=== PATIENT | female | born 1970 | race African-American/Black ===

== ENCOUNTER 2019-01-30 07:30 | Inpatient (IN) | payer OTHER ==
[2019-01-30 08:32] VITALS: BMI 28.2
[2019-02-03] MEDS ORDERED: BUPIVACAINE HCL/PF 0.5% (5MG/ML) 10 ML VIAL ONE (13:53)
[2019-02-03] MEDS ORDERED: MIDAZOLAM HCL 2 MG/2 ML SINGLE DOSE VIAL ONE ×3 (14:01→14:23)
--- NOTE | 2019-02-03 14:22 | HP ---
Admitting History and Physical - Admission Chief Complaint: Endometrial stroma neoplasm History of Present Illness: 48 yo Para 2, diagnosed with endometrial stroma neoplasm, is pre op for abdominal hysterectomy. History Source: Patient Limitations to Obtaining History: No Limitations - Past Medical History ...LMP: 12/31/18 ...: No ...Para: 2 - Past Surgical History Past Surgical History: Yes: None - Smoking History Smoking history: Never smoked Have you smoked in the past 12 months: No - Alcohol/Substance Use Hx Alcohol Use: Yes (occas) History of Substance Use: reports: None - Social History History of Recent Travel: No Home Medications - Allergies Allergies/Adverse Reactions: Allergies Allergy/AdvReac Type Severity Reaction Status Date / Time No Known Drug Allergies Allergy Verified 02/03/19 13:23 - Home Medications Home Medications: Ambulatory Orders Ferrous Sulfate 325 mg PO DAILY 01/30/19 Family Disease History - Family Disease History Family History: Unremarkable Review of Systems - Review of Systems Constitutional: reports: No Symptoms Eyes: reports: No Symptoms HENT: reports: No Symptoms Neck: reports: No Symptoms Cardiovascular: reports: No Symptoms Respiratory: reports: No Symptoms Gastrointestinal: reports: No Symptoms Genitourinary: reports: No Symptoms Breasts: reports: No Symptoms Reported Musculoskeletal: reports: No Symptoms Integumentary: reports: No Symptoms Neurological: reports: No Symptoms Endocrine: reports: No Symptoms Hematology/Lymphatic: reports: No Symptoms Psychiatric: reports: No Symptoms Pain Intensity: 0 Physical Examination Vital Signs: Vital Signs Temperature 98.8 F 02/03/19 13:19 Pulse Rate 95 H 02/03/19 13:19 Respiratory Rate 20 02/03/19 13:19 Blood Pressure 134/74 02/03/19 13:19 O2 Sat by Pulse Oximetry (%) 99 02/03/19 13:18 Constitutional: Yes: Well Nourished Eyes: Yes: Conjunctiva Clear HENT: Yes: Atraumatic Neck: Yes: Supple Cardiovascular: Yes: Regular Rate and Rhythm Respiratory: Yes: Regular Gastrointestinal: Yes: Normal Bowel Sounds ...Rectal Exam: Yes: WNL Renal/: Yes: WNL Breast(s): Yes: WNL Musculoskeletal: Yes: WNL Extremities: Yes: WNL Neurological: Yes: Alert, Oriented ...Motor Strength: WNL Psychiatric: Yes: Alert, Oriented Problem List - Problems (1) Endometrial stromal neoplasm Code(s): D39.0 - NEOPLASM OF UNCERTAIN BEHAVIOR OF UTERUS Assessment/Plan Endometrial stroma neoplasm Pre op for SRINI Consent signed Anesthesia to see patient
[2019-02-03] MEDS ORDERED: PROPOFOL 20 ML ONE (14:23)
[2019-02-03] MEDS ORDERED: fentaNYL CITRATE 250 MCG/5 ML VIAL ONE (14:23)
[2019-02-03] MEDS ORDERED: LIDOCAINE HCL/PF 2% SDV 5ML VIAL ONE (14:27)
[2019-02-03] MEDS ORDERED: DEXAMETHASONE SOD PHOSPHATE 4 MG/1 ML VIAL ONE (14:27)
[2019-02-03] MEDS ORDERED: ROCURONIUM BROMIDE 50 MG/5 ML VIAL ONE (14:31)
[2019-02-03] MEDS ORDERED: ceFAZolin SODIUM 1 GM VIAL IVPB ONE (15:00)
[2019-02-03] MEDS ORDERED: ceFAZolin SODIUM 1 GM VIAL ONE (15:03)
[2019-02-03] MEDS ORDERED: HYDROmorphone HCl 2 MG/ML VIAL ONE (15:29)
[2019-02-03] MEDS ORDERED: ONDANSETRON 4 MG/2 ML VIAL IVPUSH PRN (16:03)
[2019-02-03] MEDS ORDERED: DOCUSATE SODIUM 100 MG CAPSULE (FP) PO PRN (16:04)
[2019-02-03] MEDS ORDERED: oxyCODONE HCL 5 MG TABLET PO PRN (16:04)
[2019-02-03] MEDS ORDERED: NALOXONE HCL 0.4 MG/ML VIAL IVPUSH PRN (16:04)
[2019-02-03] MEDS ORDERED: morphine SULFATE 4 MG/ML VIAL IVPUSH PRN (16:05)
[2019-02-03] MEDS ORDERED: LACTATED RINGERS SOLUTION 1,000 ML IV SCH (16:15)
[2019-02-03] MEDS ORDERED: NEOSTIGMINE METHYLSULFATE 0.5 MG/ML - 10 ML MDV ONE (16:19)
[2019-02-03] MEDS ORDERED: GLYCOPYRROLATE 0.2 MG/1 ML VIAL ONE (16:19)
[2019-02-03] MEDS ORDERED: BENZOIN TINCTURE SWABSTICK TP ONE (16:20)
--- NOTE | 2019-02-03 16:28 | OP ---
Operative Note - Note: Operative Date: 02/03/19 Pre-Operative Diagnosis: Endometrial stomal neoplasm Operation: Total abdominal hysterectomy / Bilateral salpingectomy Findings: Enlarged uterus c/w 16 weeks size Post-Operative Diagnosis: Same as Pre-op Surgeon: Yokasta Hung Dynamometer Repairer: Vivek Raymond Anesthesia: General Specimens Removed: Uterus / Tubes / Cervix Estimated Blood Loss (mls): 750
[2019-02-03] MEDS: ACETAMINOPHEN 500 MG TABLET (FP) PO SCH (17:00)
[2019-02-03] MEDS ORDERED: ACETAMINOPHEN INJECTION 100 ML IVPB ONE (17:32)
[2019-02-03 17:43] LABS: HEMATOCRIT 26.9 % (32.4-45.2); HEMOGLOBIN 8.4 GM/dL (10.7-15.3); MCH 22.3 pg (25.7-33.7); MEAN CELL VOLUME 71.8 fl (80-96); MEAN PLT VOLUME 8.8 fl (7.5-11.1); PLATELET COUNT 466 K/MM3 (134-434); RBC 3.75 M/mm3 (3.60-5.2); RDW 37.4 % (11.6-15.6); WHITE BLOOD COUNT 13.6 K/mm3 (4.0-10.0)
[2019-02-03] MEDS: DEXTROSE 5%-LACTATED RINGERS 1,000 ML IV SCH (17:53)
[2019-02-03] MEDS: LABETALOL HCL 5 MG/1 ML (100MG/20 ML VIAL) IVPUSH ONE ×2 (18:25→19:10)
[2019-02-03] MEDS ORDERED: ACETAMINOPHEN 1000 MG/100 ML VIAL (NON FORMULARY) IVPB ONE (18:27)
[2019-02-03] MEDS: CEFAZOLIN 1 GM/D5W 1 GM/50 ML BAG IVPB SCH (23:38)
[2019-02-04] MEDS: ACETAMINOPHEN 500 MG TABLET (FP) PO SCH ×6 (00:05→17:28)
[2019-02-04] MEDS ORDERED: ceFAZolin SODIUM 1 GM VIAL ONE (06:21)
[2019-02-04] MEDS: CEFAZOLIN 1 GM/D5W 1 GM/50 ML BAG IVPB SCH ×3 (06:29→07:22)
[2019-02-04 07:10] LABS: HEMATOCRIT 25.3 % (32.4-45.2); HEMOGLOBIN 8.4 GM/dL (10.7-15.3); MCH 23.6 pg (25.7-33.7); MCHC 33.1 g/dl (32.0-36.0); MEAN CELL VOLUME 71.2 fl (80-96); MEAN PLT VOLUME 8.5 fl (7.5-11.1); PLATELET COUNT 470 K/MM3 (134-434); RBC 3.56 M/mm3 (3.60-5.2); RDW 37.2 % (11.6-15.6)
[2019-02-04] MEDS: LABETALOL HCL 5 MG/1 ML (100MG/20 ML VIAL) IVPUSH ONE (07:23)
[2019-02-04] MEDS: MORPHINE SULFATE 2 MG/ML VIAL IVPUSH PRN ×2 (07:50→11:20)
[2019-02-04 08:25] LABS: CREATININE 0.8 mg/dL (0.55-1.3); POTASSIUM 4.4 mmol/L (3.5-5.1)
--- NOTE | 2019-02-04 08:33 | PN ---
Progress Note (short form) - Note Progress Note: 48 yo Para 2 with endometrial stromal neoplasm, is status post SRINI. She's lying in bed. No complaints. PE : Chest : CTA, no rales ABD : Dressing dry and intact. 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
--- NOTE | 2019-02-04 09:37 | PN ---
Progress Note, Physician Chief Complaint: s/p total abdominal hysterectomy under general anesthesia History of Present Illness: post op day one, TAP block for post op pain - Current Medication List Current Medications: Active Medications Acetaminophen (Tylenol -) 1,000 mg PO Q6H [facility] Last Admin: 02/04/19 07:20 Dose: Not Given Docusate Sodium (Colace -) 100 mg PO BID PRN PRN Reason: CONSTIPATION Fentanyl (Sublimaze Injection -) 50 mcg IVPUSH [id number] PRN PRN Reason: PAIN-PACU ORDER X 4 DOSES ONLY Last Admin: 02/03/19 18:35 Dose: 50 mcg Ferrous Sulfate (Feosol -) 325 mg PO BIDWM [facility] Dextrose/Lactated Ringer's (D5-Lr -) 1,000 mls @ 125 mls/hr IV ASDIR [facility] Last Admin: 02/03/19 17:53 Dose: 125 mls/hr Morphine Sulfate (Morphine Sulfate) 3 mg IVPUSH Q3H PRN PRN Reason: PAIN LEVEL 7 - 10 Last Admin: 02/04/19 07:50 Dose: 3 mg Naloxone HCl (Narcan -) 0.4 mg IVPUSH PRN PRN PRN Reason: RESPIRATORY DEPRESSION Ondansetron HCl (Zofran Injection) 4 mg IVPUSH Q6H PRN PRN Reason: NAUSEA AND/OR VOMITING Oxycodone HCl (Roxicodone -) 5 mg PO Q3H PRN PRN Reason: PAIN LEVEL 1 - 3 Oxycodone HCl (Roxicodone -) 10 mg PO Q3H PRN PRN Reason: PAIN LEVEL 4 - 6 - Objective Vital Signs: Vital Signs Temperature 98.9 F 02/04/19 07:56 Pulse Rate 112 H 02/04/19 07:56 Respiratory Rate 20 02/04/19 07:56 Blood Pressure 157/85 02/04/19 07:56 O2 Sat by Pulse Oximetry (%) 99 02/04/19 08:26 Constitutional: Yes: Well Nourished Cardiovascular: Yes: WNL Respiratory: Yes: WNL Gastrointestinal: Yes: WNL Labs: CBC, BMP 02/04/19 06:25 02/04/19 06:25 Assessment/Plan No post anesthetic complaints, pain controlled, dept of anesthesia will sign off care at this time
[2019-02-04] MEDS: FERROUS SO4 325 MG TABLET (FP) PO SCH ×2 (10:00→17:28)
[2019-02-04] MEDS: DEXTROSE 5%-LACTATED RINGERS 1,000 ML IV SCH ×2 (11:15→19:25)
[2019-02-04] MEDS: oxyCODONE HCL 5 MG TABLET PO PRN ×2 (14:57→19:54)
[2019-02-05] MEDS: ACETAMINOPHEN 500 MG TABLET (FP) PO SCH ×3 (00:22→12:16)
[2019-02-05] MEDS: oxyCODONE HCL 5 MG TABLET PO PRN ×2 (02:55→08:25)
[2019-02-05 06:10] VITALS: BP 134/77
[2019-02-05] MEDS: FERROUS SO4 325 MG TABLET (FP) PO SCH (08:24)
[2019-02-05 08:33] VITALS: PULSE 108; TEMP 99.3
--- NOTE | 2019-02-05 13:47 | PN ---
Progress Note, Physician History of Present Illness: 48 y/o female s/p SRINI and bilateral saplingectomy, seen and evaluated. Pain controlled, tolerating diet, ambulating. Voiding. Scant VB. No flatus yet. Denies CP/SOB/F/C/RODRIGUEZ. No dizziness. - Current Medication List Current Medications: Active Medications Acetaminophen (Tylenol -) 1,000 mg PO Q6H [facility] Last Admin: 02/05/19 12:16 Dose: 1,000 mg Docusate Sodium (Colace -) 100 mg PO BID PRN PRN Reason: CONSTIPATION Fentanyl (Sublimaze Injection -) 50 mcg IVPUSH [id number] PRN PRN Reason: PAIN-PACU ORDER X 4 DOSES ONLY Last Admin: 02/03/19 18:35 Dose: 50 mcg Ferrous Sulfate (Feosol -) 325 mg PO BIDWM [facility] Last Admin: 02/05/19 08:24 Dose: 325 mg Dextrose/Lactated Ringer's (D5-Lr -) 1,000 mls @ 125 mls/hr IV ASDIR [facility] Last Admin: 02/04/19 19:25 Dose: 125 mls/hr Morphine Sulfate (Morphine Sulfate) 3 mg IVPUSH Q3H PRN PRN Reason: PAIN LEVEL 7 - 10 Last Admin: 02/04/19 11:20 Dose: 3 mg Naloxone HCl (Narcan -) 0.4 mg IVPUSH PRN PRN PRN Reason: RESPIRATORY DEPRESSION Ondansetron HCl (Zofran Injection) 4 mg IVPUSH Q6H PRN PRN Reason: NAUSEA AND/OR VOMITING Oxycodone HCl (Roxicodone -) 5 mg PO Q3H PRN PRN Reason: PAIN LEVEL 1 - 3 Oxycodone HCl (Roxicodone -) 10 mg PO Q3H PRN PRN Reason: PAIN LEVEL 4 - 6 Last Admin: 02/05/19 08:25 Dose: 10 mg - Objective Vital Signs: Vital Signs Temperature 99.3 F 02/05/19 08:00 Pulse Rate 108 H 02/05/19 08:00 Respiratory Rate 20 02/05/19 08:00 Blood Pressure 134/77 02/05/19 08:00 O2 Sat by Pulse Oximetry (%) 100 02/05/19 08:00 Constitutional: Yes: Well Nourished, No Distress, Calm Eyes: Yes: Conjunctiva Clear HENT: Yes: Atraumatic Neck: Yes: Supple Cardiovascular: Yes: Tachycardia Gastrointestinal: Yes: Normal Bowel Sounds, Soft Wound/Incision: Yes: Clean/Dry, Well Approximated, Sutures Intact Neurological: Yes: Alert, Oriented Psychiatric: Yes: Alert, Oriented Labs: CBC, BMP 02/04/19 06:25 02/04/19 06:25 Problem List - Problems (1) Status post total abdominal hysterectomy Code(s): Z90.710 - ACQUIRED ABSENCE OF BOTH CERVIX AND UTERUS Assessment/Plan 48 y/o POD#2 s/p SRINI/bilateral salpingectomy regular diet encourage ambulation PO pain meds Hgb stable at 8.4, continue oral Iron ok for discharge home if tolerates regular diet/passes flatus
--- NOTE | 2019-02-05 13:57 | DS ---
Physical Examination Vital Signs: Vital Signs Temperature 99.3 F 02/05/19 08:00 Pulse Rate 108 H 02/05/19 08:00 Respiratory Rate 20 02/05/19 08:00 Blood Pressure 134/77 02/05/19 08:00 O2 Sat by Pulse Oximetry (%) 100 02/05/19 08:00 Constitutional: Yes: Well Nourished, No Distress, Calm Eyes: Yes: WNL HENT: Yes: Atraumatic Neck: Yes: Supple Cardiovascular: Yes: Tachycardia (pt asymptomatic, regular rhythm) Gastrointestinal: Yes: Normal Bowel Sounds, Soft Wound/Incision: Yes: Clean/Dry, Well Approximated, Sutures Intact Labs: CBC, BMP 02/04/19 06:25 02/04/19 06:25 Discharge Summary Reason For Visit: LEIOMYOMA OF THE UTERIS Current Active Problems Endometrial stromal neoplasm (Acute) Status post total abdominal hysterectomy (Acute) Procedures: Principal: SRINI/bilateral salpingectomy Hospital Course: Pt admitted on 02/03/2019 for SRINI/bilateral salpingectomy. Underwent uncomplicated procedure. Post op, pt was anemic with Hgb 8.4, but was stable on re-check the next day. No symptoms, slight asymptomatic tachycardia due to anemia. She was ambulating/voiding/tolerating diet and passing flatus on post op day 2 and was discharged home in stable condition on that date. Condition: Good - Instructions Diet, Activity, Other Instructions: Physical activity Resume your normal everyday activity as tolerated no heavy lifting or strenuous exercise until seen by your surgeon. You may walk unlimited amounts and climb stairs. You may resume driving the car when you feel safe and comfortable behind the wheel. No sexual activity as instructed for 6-8 weeks Wound care . If there are tapes on the skin leave them in place. They will peel off in the next 7 to 10 days. Do Not Peel them off. You may shower the day after surgery. If there are tapes present on the skin, you may shower over them. Diet There are no dietary restrictions. Eat healthy, high-fiber foods. Drink 6 to 8 glasses of liquid each day. This will assist in keeping your bowels regular. Pain management You may take Tylenol or Ibuprofen (for example, Motrin, Advil etc.) as needed for pain. Call Dr. Hung for any of the following: Severe pain not relieved by medication Fever of 101 or higher Excessive bleeding or drainage on dressing Inability to urinate Call the office for an appointment in 7-14 days. Disposition: HOME - Home Medications Comprehensive Discharge Medication List: Ambulatory Orders Ferrous Sulfate 325 mg PO DAILY 01/30/19 Ibuprofen [Motrin -] 600 mg PO QID PRN #28 tablet 02/05/19 Oxycodone HCl/Acetaminophen [Percocet 5-325 mg Tablet -] 1 tab PO Q4H PRN #20 tablet MDD 6 02/05/19
[2019-02-06] MEDS ORDERED: FERROUS SO4 325 MG TABLET (FP) PO SCH (10:00)
--- NOTE | 2019-02-12 16:33 | PATH ---
Cytology Non-Gynecological Report Patient Name: CAMILO SMITH Med. Rec. #: [id number] /Age/Gender: 1970 (Age: 48) / F Account: [id number] Location: [facility] OBS/HAND PLUG SHAPER Taken: 02/03/2019 Received: 02/04/2019 Reported: 02/12/2019 Physicians: Yokasta Hung M.D. Specimen(s) Received PELVIC WASHINGS Clinical History Uterine mass Final Diagnosis PELVIC WASHINGS: SATISFACTORY FOR EVALUATION. NO MALIGNANT CELLS IDENTIFIED. REACTIVE MESOTHELIAL CELLS AND LYMPHOCYTES PRESENT. Comment: Immunohistochemistry stained slides show few reactive lymphocytes highlighted by CD45 and CD10. CD45 and CD10 performed at [place], [place] ([id number]) and interpreted at [facility]. Electronically Signed Tim Walton M.D. Gross Description Approximately 50cc of bloody fluid received fresh. One slide and one cellblock prepared.
--- NOTE | 2019-02-13 00:33 | OP ---
DATE OF OPERATION: 02/03/2019 PREOPERATIVE DIAGNOSIS: Endometrial stromal neoplasm. POSTOPERATIVE DIAGNOSIS: Endometrial stromal neoplasm. PROCEDURE: Total abdominal hysterectomy and bilateral salpingectomy. SURGEON: Yokasta Hung MD STRUCTURAL STEEL ENGINEER: Dr. Humphrey ANESTHESIA: General. COMPLICATIONS: None. ESTIMATED BLOOD LOSS: 750 mL. DESCRIPTION OF PROCEDURE: Patient was taken to the operating room where general anesthesia was administered. Patient was placed in supine position. She was then prepped and draped in proper sterile fashion. A Pfannenstiel skin incision was made approximately 2 cm above the symphysis pubis and extended sharply through the rectus fascia. The fascia was incised bilaterally with Bovie cautery. The muscles of the anterior abdominal wall were in the midline with sharp and blunt dissection. The peritoneum was grasped between 2 pickups, elevated, and entered sharply with the Metzenbaum scissors. The pelvis was examined, and an enlarged uterus consistent with 16 weeks' size was noted. Then, the bowel was packed with moist laparotomy sponges, and 2 pean clamps were placed on the cornua and used for retraction. The round ligaments on both sides were then grabbed with the LigaSure device, clamped, burned, and cut. The anterior leaf of the broad ligament was then incised along the bladder reflection to the midline from both sides. The bladder was then gently dissected off the lower uterine segment and the cervix with a sponge stick. Then, the utero-ovarian ligaments on both sides were then grabbed with the LigaSure device, clamped, burned, and cut. Hemostasis was visualized. Then, both tubes were transected also using the LigaSure device. The uterine arteries were skeletonized bilaterally and clamped, burned, and cut using the LigaSure device. Again, hemostasis was assured. The uterosacral ligaments were clamped on both sides, transected, and suture ligated in a similar fashion. The cervix and uterus were then amputated with the cautery. The vaginal cuff angles were closed with figure-of- eight stitches of 0 Vicryl and were transfixed to the ipsilateral cardinal and uterosacral ligaments. The remainder of the vaginal cuff was closed in a series of interrupted 0 Vicryl, [id number] sutures. Hemostasis was assured. The pelvis was irrigated copiously with warm normal saline. All laparotomy sponges and instruments were removed from the abdomen. Surgicel was placed and the fascia was closed with 0 Vicryl and hemostasis was assured. The skin was closed in a subcuticular fashion using 3-0 Vicryl. Sponge, lap, needle, and instrument count were correct x2. The patient was taken to PACU awake and in stable condition. El [id number] MTDD
--- NOTE | 2019-02-13 10:47 | PATH ---
Surgical Pathology Report Patient Name: CAMILO SMITH [facility]. Rec. #: [id number] /Age/Gender: 1970 (Age: 48) / F Account: [id number] Location: [facility] OBS/SENIOR CHEMIST Taken: 02/03/2019 Received: 02/04/2019 Reported: 02/13/2019 Physicians: Yokasta Hung M.D. Specimen(s) Received A: RIGHT FALLOPIAN TUBE B: LEFT FALLOPIAN TUBE C: UTERUS AND CERVIX Clinical History Leiomyoma of uterus Final Diagnosis A. RIGHT FALLOPIAN TUBE, SALPINGECTOMY: PORTION OF FALLOPIAN TUBE, NEGATIVE FOR MALIGNANCY. B. LEFT FALLOPIAN TUBE, SALPINGECTOMY: PORTION OF FALLOPIAN TUBE WITH ONE SMALL FOCUS OF LOW GRADE ENDOMETRIAL STROMAL SARCOMA. Comment: Immunohistochemical stained slide (block B1) demonstrates the tumor cells to be positive for CD10, which supports the above diagnosis. C. 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 TUMOR EXTENDS BEYOND THE UTERUS, PRESENT IN THE ADIPOSE TISSUE IN A SEPARATE NODULE. TUMOR PRESENT AT THE RESECTION EDGES OF THE SEPARATE NODULE. LYMPHOVASCULAR INVASION IDENTIFIED. RIGHT PARAMETRIUM WITH LYMPHOVASCULAR INVASION. ONE LEIOMYOMA. PATHOLOGIC STAGE (pTNM): pT2a pNX (see comment). SEE ALSO SURGICAL PATHOLOGY CANCER CASE SUMMARY BELOW. Comment: Tumor present at soft tissue edges in a separate nodule. Thus the margin of the resection cannot be accurately assessed. Pathologic stage is at least pT2a with tumor presenting in left fallopian tube and adipose tissue in the separate nodule. Correlation with other clinical data is recommended. Immunohistochemical stained slides (block C10) demonstrate tumor cells to be positive for CD10, SD, ER, Vimentin, focal patchy immunoreactive positivity for AE1/AE3, SMA and Desmin, while negative for SMM-HC and Melan A. The morphology and immunophenotype support a diagnosis of low grade endometrial stromal sarcoma. Immunohistochemical stained slides (block C14) demonstrate tumor cells to be negative for Inhibin and Calretinin. Immunohistochemistry stains CD10, SD, ER, Vimentin, AE1/AE3, SMA, SMM-HC, Desmin, Melan A, Inhibin, and Calretinin performed at [place], [place] ([id number]) interpreted at [facility]. Positive and negative controls (internal if applicable) show appropriate results. This case was discussed with Dr. Hung on February 11, 2019. Comments Surgical Pathology Cancer Case Summary Procedure _x_ Total hysterectomy and bilateral salpingectomy _x_ Peritoneal washing + Hysterectomy Type + _x_ Abdominal Specimen Uterus and attached cervix, separate one piece of nodular tissue Tumor Size Greatest dimension (centimeters): 10 cm + Additional dimensions (centimeters): 7 x 6 cm Histologic Type _x_ Endometrial stromal sarcoma, low grade Other Tissue/ Organ Involvement _x_ Left fallopian tube Margins _x_ Cannot be assessed: tumor present at the soft tissue edges within separate nodule. Clinical correlation is necessary. Lymphovascular Invasion _x_ Present + Peritoneal/Ascitic Fluid + _x_ Negative for malignancy (normal/benign) Regional Lymph Nodes _x_ No lymph nodes submitted or found Pathologic Stage Classification (pTNM, AJCC 8th Edition) Primary Tumor (pT) _x_ pT2a: Tumor involves adnexa Regional Lymph Nodes (pN) pNX: Regional lymph nodes cannot be assessed + FIGO Stage (2015 FIGO Cancer Report) + + _x_ IIA: Adnexal involvement Electronically Signed Tim Walton M.D. Gross Description A. Received in formalin labeled "right fallopian tube," is a 3.5 cm in length fimbriated fallopian tube. The outer surface is fernando purple and smooth. Sectioning reveals an unremarkable lumen. Entire specimen submitted in 4 cassettes as follows: 1-fimbria; 2 to 4: cross sections of fallopian tube. B. Received in formalin labeled "left fallopian tube," is a 4 cm in length fimbriated fallopian tube. The outer surface is fernando purple and smooth. Sectioning reveals an unremarkable lumen. Entire specimen submitted in 3 cassettes as follows: 1-fimbria; 2-3: cross sections of fallopian tube. C. Received in formalin labeled "uterus and cervix," is a 633 g supracervically amputated uterus with no attached adnexa. The specimen measures 11.5 cm from superior to inferior, 11.5 cm from anterior to posterior and 9.0 cm from left to right. The serosa is rodriguez-pink with a 3 cm defect in the posterior fundus. The endometrial cavity measures 10 cm in length and 6 cm from cornu to cornu. A necrotic tumor, predominantly located at anterior, measuring 10 x 7 x 6 cm, with yellow-orange, firm, nodular cut surfaces, occupies the entire endometrial cavity and invading into the myometrium (>50% thickness), however not beyond the serosal surface. The remaining endometrium is rodriguez-pink and averages less than 0.1 cm in thickness. There is a 2.5 cm in greatest dimension intramural fibroid present. The separately received cervix measures 4 cm in length and averages 2.5 cm in diameter. The ectocervix is rodriguez-pink, smooth and glistening. The endocervix is unremarkable. Separately received within the same container is a 10 g, 3 cm in greatest dimension rodriguez, firm nodule. Advanced Solutions Architect sections are submitted in 19 cassettes as follows: 1-2-cervix; 3-left parametrium; 4-right parametrium; 5-8-one full thickness section of anterior endometrial lesion with myometrium to serosa; 9-53-rmshbpjxil anterior endometrial lesion; 33-84-isxrbdsqsp anterior myometrium; 33-65-ocmxiyivk endomyometrium; 17-intramural fibroid; 25-69-onrkjakotd received nodule. Additional cassettes are submitted as follows: 60-76-wxxskrkqnk cervix; 20-52-xswgmxxjmj endomyometrium. 02/05/2019 saudi02/05/2019
== END 2019-02-05 16:50 | disposition home or self-care (01) | DRG 741 ==
LOC: JSAMEDAYSX 02-03 12:05 → J3W 02-03 20:10
PROVIDERS: ADMIT Obstetrics & Gynecology; ATTEND Obstetrics & Gynecology
PROC: 0UT70ZZ Resection of Bilateral Fallopian Tubes, Open Approach (ICD-10-PCS; 2019-02-03)
PROC: 0UT90ZZ Resection of Uterus, Open Approach (ICD-10-PCS; principal; 2019-02-03 14:00)
DX: D39.0 Neoplasm of uncertain behavior of uterus (principal); R00.0 Tachycardia, unspecified; D64.9 Anemia, unspecified
CPT/HCPCS: 36415; 80048; 84703; 85027; 86850; 86900; 86901; 88108; 88305-TC; 88307-TC; 94760; J0131